=== PATIENT | male | born 1995 | race Caucasian/White ===

== ENCOUNTER → 2019-11-21 16:56 | Outpatient (BNVA) | payer OTHER, SELFPAY | PROVIDERS: Family Provider Nurse Practitioner Family; PCP Nurse Practitioner Family; Visit Provider Emergency Medicine | DX: Z20.828 Contact with and (suspected) exposure to other viral communicable diseases (principal) | CPT/HCPCS: 87635 ==

== ENCOUNTER 2022-05-09 10:50 | Outpatient (CLI) | payer OTHER, SELFPAY ==
[2022-05-09 11:51] LABS: PH Semen 7.5 (7.0-8.0); Viscosity Semen High Viscosity
[2022-05-09 14:13] LABS: Red Blood Count Semen 0-4 /hpf
[2022-05-09 14:14] LABS: Sperm Immotility 10 % (50-60); Sperm Non-Progressive Motility 20 % (5-10); Sperm Progressive Motility 70 % (31-34)
[2022-05-09 14:37] LABS: Side 1 59; Side 2 53; Sperm Count 16.8 mill/mL (40-160)
[2022-05-09 14:39] LABS: Side WITHIN 10% < 10
[2022-05-09 14:45] LABS: Pathology Referral Yes
== END 2022-05-09 10:51 | disposition home or self-care (01) ==
LOC: LAB 10:53
PROVIDERS: PCP Nurse Practitioner Family; Visit Provider Obstetrics & Gynecology
DX: Z31.69 Encounter for other general counseling and advice on procreation (principal)
CPT/HCPCS: 80503; 89320

== ENCOUNTER 2022-10-25 13:30 | Outpatient (CLI) | payer SELFPAY ==
[2022-10-25 14:18] LABS: Pathology Referral Yes; Viscosity Semen High Viscosity
[2022-10-25 14:19] LABS: PH Semen 7.5 (7.0-8.0)
[2022-10-25 14:32] LABS: Sperm Immotility 24 % (50-60); Sperm Non-Progressive Motility 3 % (5-10); Sperm Progressive Motility 73 % (31-34)
[2022-10-25 14:45] LABS: Epithelial Count Semen 0-4 /hpf
[2022-10-25 14:51] LABS: Side 1 13; Side 2 14
[2022-10-25 14:52] LABS: Side WITHIN 10% 7
[2022-10-25 14:53] LABS: Sperm Count 13.5 mill/mL (40-160)
== END 2022-10-25 13:31 | disposition home or self-care (01) ==
PROVIDERS: Visit Provider Urology
DX: N50.82 Scrotal pain (principal)
CPT/HCPCS: 80503; 89320